=== PATIENT | female | born 1950 | race African-American/Black ===

== ENCOUNTER 2016-08-14 10:20 | Emergency (ER) | payer MEDICARE, MEDICAID ==
[~2016-08-14] VITALS: Ht 167.6 cm; Wt 101.8 kg
[~2016-08-14 10:20] MED LIST: GABA-529 PO; HYDR-3965 PO; IBUP-1547 PO
[2016-08-14] MEDS ORDERED: ALBU8HFA IH (10:27)
[2016-08-14] MEDS ORDERED: SIMV-260 PO (10:27)
[2016-08-14] MEDS ORDERED: LIDOCAINE HCL/PF 1% 2 ML VIAL IM ONE (11:00)
[2016-08-14] MEDS ORDERED: DEXAMETHASONE SOD PHOS 4 MG/ML 5 ML VIAL IM ONE (11:00)
[2016-08-14] MEDS ORDERED: CefTRIAXone SODIUM 1 GM/VIAL IM ONE (11:00)
[2016-08-14 12:08] VITALS: BP 142/77
== END 2016-08-14 12:10 | disposition home or self-care (01) ==
LOC: EMS 10:23
DX: J02.0 Streptococcal pharyngitis (principal); Z88.0 Allergy status to penicillin; Z91.018 Allergy to other foods
CPT/HCPCS: 96372; 99284; J0696; J1100; J3490

== ENCOUNTER 2019-01-08 12:47 | Emergency (ER) | payer MEDICARE, MEDICAID ==
[~2019-01-08] VITALS: Ht 167.6 cm; Wt 104.5 kg
[~2019-01-08 12:47] MED LIST changes: +ALBU8HFA IH; -IBUP-1547 PO; +IBUP-2071 PO; +SIMV-260 PO
[2019-01-08] MEDS ORDERED: FOLI1 PO (12:54)
[2019-01-08] MEDS ORDERED: GABA-531 PO (12:54)
[2019-01-08] MEDS ORDERED: SERT50TA12 PO (12:54)
[2019-01-08] MEDS ORDERED: ASPI-1182 PO (12:54)
[2019-01-08] MEDS ORDERED: PANT40TA25 PO (12:54)
[2019-01-08] MEDS ORDERED: CYAN250010 PO (12:54)
[2019-01-08] MEDS ORDERED: METH2.5 PO (12:54)
[2019-01-08] MEDS ORDERED: SODIUM CHLORIDE 0.9% 1,000 ML IV ONE ×2 (14:45→15:45)
[2019-01-08 15:12] LABS: BASOPHILS % (AUTO) 1.2 % (0.0-2.0); EOSINOPHILS % (AUTO) 1.9 % (1.0-6.0); HEMOGLOBIN 13.7 g/dL (12.0-16.0); LYMPHOCYTES # (AUTO) 1.4 K/uL (1.0-4.8); LYMPHOCYTES % (AUTO) 20.2 % (22.0-44.0); MEAN CORPUSCULAR HEMOGLOBIN 26.8 pg (26.0-34.0); MEAN CORPUSCULAR HGB CONC 31.9 G/dL (31.0-37.0); MEAN CORPUSCULAR VOLUME 84 fL (80-100); MONOCYTES # (AUTO) 0.4 K/uL (0.1-1.0); MONOCYTES % (AUTO) 6.3 % (2.0-9.0); NEUTROPHILS % (AUTO) 70.4 % (40.0-70.0); PLATELET COUNT (AUTO) 273 K/uL (150-450); RED BLOOD CELL COUNT(AUTO) 5.12 MIL/uL (4.00-5.20); RED CELL DISTRIBUTION WIDTH 15.9 % (11.5-14.5)
[2019-01-08 15:28] LABS: ANION GAP 4 mmol/L (8-16); CALCIUM, TOTAL 9.6 mg/dL (8.8-10.5); CARBON DIOXIDE 33 mmol/L (22-29); CHLORIDE 103 mmol/L (98-107); CREATININE 0.98 mg/dL (0.60-1.30); GLOMERULAR FILTR. RATE CALC > 60 mL/min (>60); GLUCOSE,RANDOM 91 mg/dL (70-110); SODIUM SERUM 140 mmol/L (136-145); UREA NITROGEN, BLOOD 12 mg/dL (7-18)
[2019-01-08 15:41] LABS: ALANINE AMINOTRANSFERASE 27 U/L (12-78); ALKALINE PHOSPHATASE 62 U/L (46-116); ASPARTATE AMINOTRANSFERASE 20 U/L (15-37); BILIRUBIN,TOTAL 0.3 mg/dL (0.1-1.0); LIPASE 131 U/L (73-393)
[2019-01-08] MEDS ORDERED: AZITHROMYCIN 500 MG/NS 250 ML IV ONE (15:45)
[2019-01-08] MEDS ORDERED: CefTRIAXone 1 GM/DEXTROSE 50 ML IV ONE (15:45)
[2019-01-08 15:55] LABS: INFLUENZA TYPE A NEGATIVE FOR TYPE A (NEGATIVE); INFLUENZA TYPE B NEGATIVE FOR TYPE B (NEGATIVE)
[2019-01-08 16:01] LABS: ALBUMIN 3.4 g/dL (3.4-5.0)
[2019-01-08 16:20] LABS: APPEARANCE,URINE CLOUDY (CLEAR); BILIRUBIN,URINE NEGATIVE (NEGATIVE); GLUCOSE, URINE (UA) NEGATIVE (NEGATIVE); KETONES,URINE NEGATIVE (NEGATIVE); LEUKOCYTE ESTERASE ,URINE MODERATE (NEGATIVE); NITRATE,URINE NEGATIVE (NEGATIVE); OCCULT BLOOD,URINE NEGATIVE (NEGATIVE); PH,URINE 7.5 (5.0-8.0); PROTEIN,URINE NEGATIVE (NEGATIVE)
[2019-01-08 16:55] LABS: BACTERIA,URINE Moderate /HPF (None Seen); RBC,URINE 0-2 /HPF (0-2); SQUAMOUS EPITHELIAL CELL,UR Moderate /LPF (None Seen)
[2019-01-08 18:00] VITALS: BP 130/70
== END 2019-01-08 18:18 | disposition home or self-care (01) ==
LOC: EMS 12:48
DX: J18.9 Pneumonia, unspecified organism (principal); N39.0 Urinary tract infection, site not specified; M79.10 Myalgia, unspecified site; H92.02 Otalgia, left ear; G89.29 Other chronic pain; F32.9 Major depressive disorder, single episode, unspecified; Z90.710 Acquired absence of both cervix and uterus; Z88.0 Allergy status to penicillin; Z91.018 Allergy to other foods; Z79.82 Long term (current) use of aspirin
CPT/HCPCS: 36415; 71045; 80053; 81001; 83605; 83690; 84484; 85025; 87040; 87077; 87086; 87186; 87804; 93005; 96365; 96368; 99284; J0456; J0696; J7030

== ENCOUNTER 2019-01-13 20:18 | Emergency (ER) | payer MEDICARE, MEDICAID ==
[~2019-01-13] VITALS: Ht 167.6 cm; Wt 101.4 kg
[~2019-01-13 20:18] MED LIST changes: +ASPI-1182 PO; +CYAN250010 PO; +FOLI1 PO; -GABA-529 PO; +GABA-531 PO; -HYDR-3965 PO; -IBUP-2071 PO; +METH2.5 PO; +PANT40TA25 PO; +SERT50TA12 PO; -SIMV-260 PO
[2019-01-13] MEDS ORDERED: SIMV40TA5 PO (21:23)
[2019-01-13] MEDS ORDERED: LEVO750P7 IV (21:23)
[2019-01-14] MEDS ORDERED: KETOROLAC TROMETHAMINE 30 MG/ML VIAL IM ONE (00:30)
[2019-01-14] MEDS ORDERED: LIDOCAINE 5% TRANSDERMAL PATCH TD ONE (00:30)
[2019-01-14] MEDS ORDERED: CYCLOBENZAPRINE HCL 10 MG TABLET PO ONE (00:30)
[2019-01-14 02:27] VITALS: BP 113/84
== END 2019-01-14 02:51 | disposition home or self-care (01) ==
LOC: EMS 20:19
DX: M54.5 Low back pain (principal); G89.29 Other chronic pain; F32.9 Major depressive disorder, single episode, unspecified; Z90.710 Acquired absence of both cervix and uterus; Z79.82 Long term (current) use of aspirin; Z88.0 Allergy status to penicillin; Z91.018 Allergy to other foods
CPT/HCPCS: 72100; 96372; 99283; J1885

== ENCOUNTER 2022-04-30 14:58 | Emergency (ER) | payer MEDICARE, MEDICAID ==
[~2022-04-30] VITALS: Ht 167.6 cm; Wt 98.2 kg
[~2022-04-30 14:58] MED LIST changes: +ALBU18HF12 IH; -ALBU8HFA IH; -ASPI-1182 PO; +ASPI-1444 PO; +FOLI-130 PO; -FOLI1 PO; +GABA-1181 PO; -GABA-531 PO; +METF-1211 PO; +PANT-31 PO; -PANT40TA25 PO; +SERT-158 PO; -SERT50TA12 PO; +SIMV-46 PO
[2022-04-30] MEDS ORDERED: CLIN60LO6 TP (17:11)
[2022-04-30] MEDS ORDERED: OXYB5TAB20 PO (17:11)
[2022-04-30] MEDS ORDERED: POVIDONE-IODINE 10% 15 ML SOLUTION UD TP ONE (17:15)
[2022-04-30] MEDS ORDERED: LIDOCAINE 1% 10 ML VIAL PERC ONE (17:15)
[2022-04-30] MEDS ORDERED: CEPH-558 PO (18:08)
[2022-04-30 18:36] VITALS: BP 143/68
== END 2022-04-30 18:48 | disposition home or self-care (01) ==
LOC: EMS 15:03
DX: N64.89 Other specified disorders of breast (principal); F32.A Depression, unspecified; G89.29 Other chronic pain; M54.9 Dorsalgia, unspecified; Z90.710 Acquired absence of both cervix and uterus; Z98.890 Other specified postprocedural states; Z91.018 Allergy to other foods; Z88.0 Allergy status to penicillin
CPT/HCPCS: 99284; 12001; J3490